=== PATIENT | female | born 1980 | race Caucasian/White ===

== ENCOUNTER → 2016-08-20 | Outpatient (CLI) | payer BC, SELFPAY ==
[~2016-08-20] MED LIST: CARAFATE PO; CIPRO PO; EFFEXOR XR PO; EFFEXOR75 MG PO; EXCEDRIN ASA FR1 TA1 PO; FLAGYL PO; IBUPROFEN800 MG PO; KLONOPIN PO; KLONOPIN0.25 MG/TA PO; LISINOPRIL PO; LISINOPRIL10 MG PO; METHOTREXATE2.5 MG PO; MINASTRIN 24 F1 EACH PO; OMEPRAZOLE40 M1 PO; PRILOSEC PO; ROBAXIN500 MG PO; VOLTAREN50 MG PO; YASMIN 28 TABLE1 TAB PO; ZOFRAN ODT4 MG PO; [UNRECOGNIZED DRUG - OTHER] PO
--- NOTE | ~2016-08-20 | CT2 ---
[facility] A Service of [facility] RADIOLOGY TEXT RESULTS PATIENT: LILLIANA LAU LOCATION: [facility] : 76 UNIT #: [id number] AGE: [address]: Oleksandr Wells MD SEX: F ORDER DR: [id number] [facility] [address]. [place], [place] [address] [id number] O MR#: [id number] Acc #: [id number] NAME: LILLIANA LAU : 1980 SEX: F STUDY DATE/TIME: 08/20/2016 9:15 UNIT: CCAT ROOM: STUDY DESCRIPTION: CT Abd and Pelv W Cont Attending Physician: Oleksandr Wells M.D. Referring Physician: Oleksandr Wells M.D. Ordering Physician: Oleksandr Wells M.D. Primary Care Physician: Jose Manuel Mejia M.D. MEDICAL IMAGING REPORT This report is preliminary unless electronic signature is present EXAM CT abdomen and pelvis with contrast INDICATIONS Follow up dermatomyositis. PROCEDURE Contrast-enhanced CT of the abdomen and pelvis. 100 mL of Isovue-370. This CT exam was performed with one or more of the following radiation dose reduction techniques: automatic exposure control, adjustment of mA and/or kV according to patient size, and iterative reconstruction. COMPARISON 01/19/2014 FINDINGS Refer to separately dictated chest CT for thoracic findings. Abdomen with contrast: The liver, spleen, kidneys, adrenal glands pancreas unremarkable. Previous cholecystectomy. Lap band in place. The bowel loops are nondilated. No abdominal adenopathy. Pelvis with contrast: No pelvic mass or fluid. No abdominal or pelvic adenopathy. No abnormal soft tissue mass or calcification. No aggressive appearing bone lesion. IMPRESSION 1. No acute findings in the abdomen or pelvis. No abdominal or pelvic mass or soft tissue calcification. 2. Lap band in place. [facility] A Service of [facility] RADIOLOGY TEXT RESULTS PATIENT: LILLIANA LAU LOCATION: [facility] : 76 UNIT #: [id number] AGE: [address]: Oleksandr Wells MD SEX: F ORDER DR: Dictated by... Feliciano Franklin M.D. THIS IS AN ELECTRONICALLY VERIFIED REPORT Feliciano Franklin M.D. at 08/21/2016 11:39 AM TAMMY/elena TD: 08/20/2016 10:44 JOB #: [id number] MEDICAL IMAGING REPORT COPY
--- NOTE | ~2016-08-20 | CT55 ---
[facility] A Service of [facility] RADIOLOGY TEXT RESULTS PATIENT: LILLIANA LAU LOCATION: [facility] : 76 UNIT #: [id number] AGE: [address]: Oleksandr Wells MD SEX: F ORDER DR: [id number] [facility] [address] [place], [place] [address] [id number] O MR#: [id number] Acc #: [id number] NAME: LILLIANA LAU : 1980 SEX: F STUDY DATE/TIME: 08/20/2016 9:15 UNIT: CCA ROOM: STUDY DESCRIPTION: CT Chest W Con Attending Physician: Oleksandr Wells M.D. Referring Physician: Oleksandr Wells M.D. Ordering Physician: Oleksandr Wells M.D. Primary Care Physician: Jose Manuel Mejia M.D. MEDICAL IMAGING REPORT This report is preliminary unless electronic signature is present EXAM CT chest with contrast. INDICATION Follow up dermatomyositis. Observation for malignancy. PROCEDURE Contrast-enhanced CT of the chest. 100 mL of Isovue-370. This CT exam was performed with one or more of the following radiation dose reduction techniques: automatic exposure control, adjustment of mA and/or kV according to patient size, and iterative reconstruction. COMPARISON 01/19/2014 FINDINGS Lungs are clear. No pleural fluid or pneumothorax. No adenopathy. No abnormal soft tissue mass or calcification. No aggressive appearing bone lesion. IMPRESSION No acute findings in the chest. No evidence for adenopathy or malignancy. No soft tissue or muscular mass or calcification. Dictated by... Feliciano Franklin M.D. THIS IS AN ELECTRONICALLY VERIFIED REPORT Feliciano Franklin M.D. at 08/20/2016 6:39 PM EED/tmw [facility] A Service of [facility] RADIOLOGY TEXT RESULTS PATIENT: LILLIANA LAU LOCATION: [facility] : 76 UNIT #: [id number] AGE: [address]: Oleksandr Wells MD SEX: F ORDER DR: TD: 08/20/2016 10:50 JOB #: [id number] MEDICAL IMAGING REPORT COPY
[2016-08-20 09:20] LABS: POC - GFR >60.0 mL/min (>60)
== END | disposition home or self-care (01) ==
LOC: CCAT 07:47
PROVIDERS: Dermatology
DX: M33.90 Dermatopolymyositis, unspecified, organ involvement unspecified (principal); Z98.84 Bariatric surgery status
CPT/HCPCS: 71260; 74177; 82565; Q9967

== ENCOUNTER → 2017-01-02 | Outpatient (CLI) | payer BC | END | disposition home or self-care (01) | LOC: SEKG 09:25 | DX: R94.31 Abnormal electrocardiogram [ECG] [EKG] (principal); R42 Dizziness and giddiness | CPT/HCPCS: 93225; 93226 ==